=== PATIENT | female | born 1965 | race African-American/Black ===

== ENCOUNTER 2021-11-25 07:43 | Emergency (ER) | payer OTHER, SELFPAY ==
--- NOTE | ~2021-11-25 | CT_ITS ---
EXAMINATION: CT HEAD WITHOUT CONTRAST CLINICAL INFORMATION: Persistent headache. Syncope x2. COMPARISON: No relevant prior imaging. TECHNIQUE: Contiguous axial imaging was performed from the skull base to vertex without intravenous administration of contrast. This CT examination was performed using dose optimization techniques as appropriate, variously including the following: *Automated exposure control *Adjustment of mA and/or kV according to patient size (this includes techniques or standardized protocols for targeted exams where dose is matched to indication/reason for exam; i.e. extremities or head) *Use of iterative reconstruction technique DLP: 678 mGy-cm FINDINGS: There is no acute intracranial hemorrhage or abnormal extra-axial collection. No intracranial mass effect or midline shift. Lateral and third ventricles are normal. No hydrocephalus. Schilling-white matter differentiation is preserved and there is no evidence of acute territorial infarct. The calvarium and skull base are intact. Mastoid air cells and middle ear cavities are well aerated. No active paranasal sinus disease. CT/CT head/brain wo con IMPRESSION: Normal CT scan of the head.
[2021-11-25 07:53] VITALS: BP 157/90; PULSE 70; RESP 14; TEMP 36.8; O2SAT 96
--- NOTE | 2021-11-25 08:14 | ECG_ITS ---
Test Reason : HEADACHES/FALL Blood Pressure : / mmHG Vent. Rate : 061 BPM Atrial Rate : 061 BPM P-R Int : 200 ms QRS Dur : 082 ms QT Int : 376 ms P-R-T Axes : 058 -19 020 degrees QTc Int : 378 ms Normal sinus rhythm with sinus arrhythmia Minimal voltage criteria for LVH, may be normal variant ( R in aVL ) Nonspecific T wave abnormality Abnormal ECG No previous ECGs available Referred By: Dominique Smith Electronically Signed By:OZIEL BOLES MD
--- NOTE | 2021-11-25 08:24 | ED.HA ---
HPI - Headache General Chief Complaint: Headache Stated Complaint: Headache Time Seen by Provider: 11/25/21 08:07 Source: patient Mode of arrival: ambulatory History of Present Illness HPI Narrative: 56-year-old female with no significant past medical history presenting to the ED complaining of persistent headache and left eye feeling heavy s/p syncope x2 on 11/09. Patient reports episode happened after her mother's at 02:00 when she was sitting on the toilet, syncopized between bath tub and toilet seat then again in closet. + Head head and LOC. admits also had initial nausea and emesis x1. Denies any repeat syncopal episode, nausea or vomiting since the . has been taking Tylenol for headache without relief. denies symptoms prior to episode. Denies vision change/ loss, abdominal pain, chest pain, shortness of breath, history of clots, cigarette smoking MD elicited complaint: headache Onset (ago): week(s) Related Data Previous Rx's Medication Instructions Recorded [id number]-tpdvqlqqpninv-[id number] 1 cap PO Q4-6H PRN #14 cap 11/25/21 50 mg-300 mg-40 mg capsule (Fioricet) Allergies Allergy/AdvReac Type Severity Reaction Status Date / Time No Known Allergies Allergy Verified 11/25/21 08:14 Review of Systems Review of Systems: Constitutional: No Fever, No Chills, No Fatigue, No Malaise ENT/Mouth: No Ear Pain, No Nasal Congestion, No sore throat, No Rhinorrhea, No Swallowing Difficulty Eyes: No Eye Pain, No Swelling, No Redness, No Vision Changes Cardiovascular: No Chest Pain, No SOB, No Dyspnea on Exertion, No Orthopnea, No Edema, No Palpitations Respiratory: No Cough, No Sputum, No Dyspnea Gastrointestinal: + Nausea (resolved), + Vomiting(resolved), No Diarrhea, No Constipation, No Abdominal pain Genitourinary: No Dysuria, No Urinary Frequency, No Hematuria, No Urinary Incontinence/retention Musculoskeletal: No joint pain, No Myalgias, No Joint Swelling Skin: No Skin Lesions, No rash Neuro: No Weakness, No Numbness, No Paresthesias, +syncope x 2, No Dizziness, + Headache Yes all other systems are reviewed and are negative Neurologic: Denies Abnormal speech present [facility] Past Medical History Attestation statement: The following information was validated with the patient. Social History Social History Advance Directives: No Advance Directives Information Provided: No Physical Exam Vital Signs: Vital Signs: Last Vital Signs Temp 97.9 F 11/25/21 08:38 Pulse 70 11/25/21 08:38 Resp 16 11/25/21 08:38 BP 157/90 H 11/25/21 08:38 Pulse Ox 98 11/25/21 08:38 BMI result Body Mass Index 30.0 Const: General: cooperative, healthy appearing, no acute distress, alert, awake and Physically active Orientation/consciousness: patient oriented x3 Limitations: no limitations HEENT: Head: Yes normal to inspection, Yes atraumatic, No Ruiz's sign and No raccoon eyes Ears: hearing grossly normal bilaterally General nose exam: Normal external nose present Face and sinus: Yes normal facial exam Throat: Yes posterior oropharynx normal Eyes: General: appearance normal, both eyes and all related structures EOM: EOMs intact bilaterally Neck: Other: No midline cervical spinous tenderness Neck: Yes normal visual inspection and Yes no meningeal signs Resp: Effort & Inspection: normal respiratory effort and no respiratory distress Auscultation: clear to auscultation bilaterally, no rales, no rhonchi and no wheezes Cardio: Rate: regular rate Heart sounds: S1 normal heart sound present and S2 normal heart sound present GI: Inspection: Yes normal to inspection Palpation (GI): Soft to palpation, nontender, no guarding and not rigid : General: Yes no CVA tenderness Back/Spine/Pelvis: Back: no CVA tenderness Skin: Rashes: no rashes Wounds: no wounds Neuro: General: patient oriented x3, gait normal, tone normal, moves all extremities, no meningeal signs, no focal motor deficits and CN's II-XI intact bilaterally Cranial nerves: Yes CN's II-XII intact bilaterally and Yes Bilaterally intact EOM present Cognition (Neuro): normal cognition Speech: No Abnormal speech present Gait exam (Neuro): Normal gait present Motor exam (neuro): 5/5 motor strength present throughout Extrem: General: Yes normal to inspection Course Course Course Narrative: -[id number]-- labs unremarkable. Head CT WNL. > Results discussed with patient including worrisome signs and symptoms and strict return precautions and need close follow-up with PCP. She verbalized understanding feel safe for discharge home at this time MDM - Headache MDM Narrative Medical decision making narrative: 56-year-old female with no significant past medical history presenting to the ED complaining of persistent headache and left eye feeling heavy s/p syncope x2 on 11/09. on exam vital signs stable, NAD/ nontoxic appearing, no focal neuro deficits. Concern for concussion / postconcussive syndrome vs ICH. Low concern for ACS/PE. Rule out metabolic/infectious etiologies. Plan: EKG, labs, UA, head CT, pain management, re-evaluate Differential Diagnosis Differential diagnosis: Likely migraine, tension headache, headache and postconcussion syndrome Medical Records Attestation: I reviewed the patient's medical records. Lab Data Attestation: I reviewed the patient's lab results. Result diagrams: 11/25/21 08:36 11/25/21 08:36 Labs: Lab Results 11/25/21 11/25/21 11/25/21 Range/Units 08:36 08:36 09:29 WBC 4.8 (4.8-10.8) X10*3/uL RBC 4.13 L (4.20-5.50) X10*6/uL Hgb 13.9 (12.0-16.0) g/dl Hct 40.6 (37.0-47.0) % MCV 98.3 H (80.0-98.0) fL MCH 33.7 H (27.0-33.0) pg MCHC 34.2 (31.0-35.0) g/dl RDW 12.7 (11.0-16.0) % Plt Count 222 (160-400) X10*3/uL MPV 9.6 (9.4-12.3) fL Immature Gran % (Auto) 0.0 (0.0-0.4) % Neut % (Auto) 27.3 L (45-73) % Lymph % (Auto) 63.7 H (20-40) % [place] % (Auto) 6.7 (2-11) % Eos % (Auto) 1.5 (0-4) % Baso % (Auto) 0.8 (0-2) % Lymph # (Auto) 3.1 (1.2-4.9) X10*3/uL [place] # (Auto) 0.3 (0.1-1.2) X10*3/uL Eos # (Auto) 0.1 (0.0-0.4) X10*3/uL Baso # (Auto) 0.0 (0.0-0.2) X10*3/uL Abs Immat Gran (auto) 0.00 (0.00-0.03) X10*3/uL Absolute Neuts (auto) 1.3 L (2.0-8.3) x10*3/uL Absolute Nucleated RBC 0.000 (0.0-0.012) X10*3/uL Nucleated RBC % (auto) 0.0 (0.0-0.2) /100WBC Smear Tech's Comments VERIFIED Sodium 141 (135-145) mmol/L Potassium 3.5 (3.3-5.1) mmol/L Chloride 108 (96-108) mmol/L Carbon Dioxide 23 (22-29) mmol/L Anion Gap 14 (12-20) BUN 14 (9-16) mg/dL Creatinine 0.69 (0.5-1.4) mg/dL Estim Creat Clear Calc 93.8 Estimated GFR > 60 Random Glucose 94 (60-115) mg/dL Calcium 9.9 (8.4-10.2) mg/dL Magnesium 1.8 (1.6-2.6) mg/dL Total Bilirubin 0.6 (0.0-1.0) mg/dL Direct Bilirubin 0.2 (0.0-0.5) mg/dL AST 10 (5-31) U/L ALT 18 (0-31) U/L Alkaline Phosphatase 54 (39-117) U/L Total Protein 7.9 (6.5-8.0) g/dL Albumin 4.3 (3.5-5.0) g/dL Urine Color YELLOW Urine Appearance CLEAR Urine pH 6.0 (5.0-8.0) Ur Specific [place] 1.025 (1.005-1.025) Urine Protein NEG (NEG-TRACE) MG/DL Urine Glucose (UA) NEG (NEG) MG/DL Urine Ketones NEG (NEG) MG/DL Urine Blood NEG (NEG) Urine Nitrite NEG (NEG) Ur Leukocyte Esterase NEG (NEG) ECG Data Attestation: I personally reviewed and interpreted this ECG as follows: ECG interpretation date: 11/25/21 ECG interpretation time: 08:13 Interpretation: EKG normal sinus rhythm with sinus arrhythmia at a rate of 61. QRS 82. QTC 370. No STEMI Discharge Plan Discharge Clinical Impression: Postconcussion syndrome Patient Disposition: Home, Self-Care Instructions: Post Concussion Syndrome (ED) Additional Instructions: head CT & blood work were unremarkable today in the emergency department. You likely a post concussive syndrome please practice brain rest, avoid TV screens, excessive phone time, bright lights. Take Motrin and Fioricet as needed, Fioricet does have Tylenol mixed in do not exceed 4 g of Tylenol in 1 day. Please follow-up with her doctor If symptoms persist or worsen, constant worsening headache, nausea or vomiting, weakness please return to the emergency department Prescriptions: New jddfrikstn-swdoaytlpagvz-pysu [Fioricet] 50-300-40 mg capsule 1 cap PO Q4-6H PRN (Reason: headache) Qty: 14 0RF Referrals: Physician,Unknown J [Primary Care Provider] - 1 week
[2021-11-25 08:38] VITALS: BP 157/90; PULSE 70; RESP 16; TEMP 36.6; O2SAT 98
[2021-11-25 08:44] LABS: Basophils Percent Auto 0.8 % (0-2); Eosinophils Absolute Auto 0.1 X10*3/uL (0.0-0.4); Eosinophils Percent Auto 1.5 % (0-4); Hematocrit 40.6 % (37.0-47.0); Hemoglobin 13.9 g/dl (12.0-16.0); Lymphocytes Absolute Auto 3.1 X10*3/uL (1.2-4.9); Lymphocytes Percent Auto 63.7 % (20-40); MANUAL DIFF FLAG SCAN; Mean Corpuscular HGB Conc 34.2 g/dl (31.0-35.0); Mean Corpuscular Hemoglobin 33.7 pg (27.0-33.0); Mean Corpuscular Volume 98.3 fL (80.0-98.0); Mean Platelet Volume 9.6 fL (9.4-12.3); Monocytes Absolute Auto 0.3 X10*3/uL (0.1-1.2); Monocytes Percent Auto 6.7 % (2-11); Neutrophils Absolute Auto 1.3 x10*3/uL (2.0-8.3); Neutrophils Percent Auto 27.3 % (45-73); Platelet Count 222 X10*3/uL (160-400); Red Blood Count 4.13 X10*6/uL (4.20-5.50); Red Cell Distribution Width 12.7 % (11.0-16.0); SCAN SMEAR FLAG 1; White Blood Count 4.8 X10*3/uL (4.8-10.8)
[2021-11-25 09:03] LABS: SLIDE REVIEW VERIFIED
[2021-11-25 09:06] LABS: Alanine Aminotransferase 18 U/L (0-31); Albumin Level 4.3 g/dL (3.5-5.0); Alkaline Phosphatase 54 U/L (39-117); Anion Gap 14 (12-20); Aspartate Amino Transferase 10 U/L (5-31); Bilirubin Direct 0.2 mg/dL (0.0-0.5); Bilirubin Total 0.6 mg/dL (0.0-1.0); Blood Urea Nitrogen 14 mg/dL (9-16); Calcium 9.9 mg/dL (8.4-10.2); Carbon Dioxide 23 mmol/L (22-29); Chloride 108 mmol/L (96-108); Creatinine Clr Calc Pharmacy 93.8; Estimated Glomerular Filt Rate > 60; Glucose Random 94 mg/dL (60-115); Magnesium 1.8 mg/dL (1.6-2.6); Potassium 3.5 mmol/L (3.3-5.1); Sodium 141 mmol/L (135-145); Total Protein 7.9 g/dL (6.5-8.0)
[2021-11-25] MEDS: Metoclopramide HCl 10 MG/2 ML VIAL IVPUSH (09:15)
[2021-11-25] MEDS: 0.9 % Sodium Chloride 1,000 ML 999 ML IV (09:15)
[2021-11-25] MEDS: Acetaminophen 325 MG TABLET 650 MG PO (09:15)
[2021-11-25 09:42] LABS: Appearance Urine CLEAR; Color Urine YELLOW; Glucose Urine UA NEG (NEG); Leukocyte Esterase Urine NEG (NEG); Nitrite Urine NEG (NEG); Specific Gravity - Urine 1.025 (1.005-1.025); Urine Blood NEG (NEG); Urine Ketones NEG (NEG); Urine Protein NEG (NEG-TRACE)
== END 2021-11-25 10:22 | disposition home or self-care (01) ==
PROVIDERS: Physician Assistant; Emergency Provider Emergency Medicine
DX: F07.81 Postconcussional syndrome (principal); R51.9 Headache, unspecified; R55 Syncope and collapse; Z79.899 Other long term (current) drug therapy
CPT/HCPCS: 36415; 70450; 80048; 80076; 81003; 83735; 85025; 93005; 96361; 96374; 96375; 99284; J2765

== ENCOUNTER 2023-01-18 10:30 | Emergency (ER) | payer OTHER, SELFPAY ==
[2023-01-18 10:35] VITALS: BP 148/100; PULSE 90; RESP 18; TEMP 36.7; O2SAT 99; BMI 31.9
--- NOTE | 2023-01-18 12:02 | ED.HEATRA ---
HPI - Head Injury General Chief complaint: Head Injury Stated complaint: Fall/Head inj Time Seen by Provider: 01/18/23 11:09 Source: patient and RN notes reviewed Mode of arrival: ambulatory Limitations: no limitations History of Present Illness HPI Narrative: This is a 57-year-old female, with no known past medical history, presenting to the emergency department for evaluation of forehead swelling x6 days patient reports that 2 weeks ago while she was visiting in [place] a plastic chair broke and she fell backwards striking her posterior head on a concrete wall. Patient denies LOC, vision changes or headaches since this injury. Patient reports that 6 days ago she noticed swelling on her forehead. Denies any falls hitting her forehead, insect bites. Denies any headache, vision changes. Denies history of similar symptoms before. She states that she had severino put in 6 days ago however does not feel as though her severino are to tight. Denies any fevers or chills. No other complaints or concerns at this time. MD Complaint: head injury Place: home Loss of Consciousness: no Location of injury: occipital Radiation: none Other Injuries: none Associated symptoms: denies other symptoms Related Data Previous Rx's Medication Instructions Recorded hmrbobkumy-uyvztjftebmbm-wgpyugut 1 cap PO Q4-6H PRN headache #14 11/25/21 50 mg-300 mg-40 mg capsule caps (Fioricet) Allergies Allergy/AdvReac Type Severity Reaction Status Date / Time Penicillins [PCN] AdvReac Rash Verified 01/18/23 10:37 sulfamethoxazole AdvReac Rash Verified 01/18/23 10:37 [From Bactrim] trimethoprim [From Bactrim] AdvReac Rash Verified 01/18/23 10:37 Review of Systems Review of Systems: Constitutional: No Weight loss, No Fever, No Chills ENT/Mouth: No Ear Pain, No Nasal Congestion, No Sinus Pain, No Hoarseness, No sore throat, No Rhinorrhea, No Swallowing Difficulty Cardiovascular: No Chest Pain, No SOB Respiratory: No Cough, No Sputum, No Wheezing Gastrointestinal: No Nausea, No Vomiting, No Diarrhea, No Constipation, No Abdominal pain Genitourinary: No Dysuria, No Urinary Frequency, No Hematuria, No Urinary Incontinence/retention, No Urgency, No Flank Pain Musculoskeletal: No joint pain, No Myalgias, No Joint Swelling Skin: No Skin Lesions, No rash Neuro: No Weakness, No Numbness, No Paresthesias Yes all other systems are reviewed and are negative Constitutional: Constitutional: Reports as per [facility] Social History Social History Alcohol intake: never Patient Tobacco Use Status: Never used Tobacco Advance Directives: No Advance Directives Information Provided: No Physical Exam Vital Signs: Vital Signs: Last Vital Signs Temp 98.1 F 01/18/23 10:35 Pulse 90 01/18/23 10:35 Resp 18 01/18/23 10:35 BP 148/100 H 01/18/23 10:35 Pulse Ox 99 01/18/23 10:35 O2 Del Method Nasal Cannula 01/18/23 10:35 BMI result Body Mass Index 31.9 Const: General: cooperative, comfortable and no acute distress Orientation/consciousness: patient oriented x3 Limitations: no limitations HEENT: Other: Posterior occipital region without tenderness, fluctuance, step-off or deformity. Head: Yes normal to inspection, Yes normocephalic and Yes atraumatic Head images: 1. Mild edema noted to frontal forehead, no erythema, induration or fluctuance, no ecchymosis or warmth. Ears: hearing grossly normal bilaterally, TM's normal bilaterally and other (No hemotympanum) General nose exam: Normal external nose present Face and sinus: Yes normal facial exam Mouth: Normal oral and palatal mucosa present, oropharynx normal and moist mucous membranes Throat: Yes posterior oropharynx normal Eyes: General: appearance normal, both eyes and all related structures Eyelids: Yes eyelids normal Conjunctivae: conjunctivae normal Sclerae: sclerae normal Pupils: Equal, round and reactive pupils present EOM: EOMs intact bilaterally Neck: Neck: Yes normal visual inspection, Yes full ROM and Yes no lymphadenopathy Lymphatic: no lymphadenopathy noted Chest: Chest palpation & inspection: normal inspection of the chest Resp: Effort & Inspection: normal respiratory effort and able to speak in complete sentences Auscultation: clear to auscultation bilaterally, no crackles, no rales, no rhonchi and no wheezes Cardio: Rate: regular rate Rhythm: regular rhythm Heart sounds: S1 normal heart sound present and S2 normal heart sound present GI: Inspection: Yes normal to inspection Back/Spine/Pelvis: Other: No C-spine tenderness, full range of motion of the neck Cervical Spine: normal cervical lordosis Skin: General skin exam: no rashes or lesions noted Trauma: no lacerations or abrasions Wounds: no wounds Neuro: General: patient oriented x3 and moves all extremities Cranial nerves: Yes Equal, round and reactive pupils present Extrem: General: Yes normal to inspection Right upper extremity: normal to inspection Left upper extremity: normal to inspection Right lower extremity: normal to inspection Left lower extremity: normal to inspection Course Reevaluation(s) Reevaluation #1: Head CT unremarkable, advised patient to apply cool compresses to the area to help reduce the swelling. Advised to return with any new or worsening symptoms. Patient understands and agrees with plan. Patient stable for discharge. Medical Decision Making Medical Decision Making MDM Narrative: 57-year-old female presenting to the emergency department for evaluation of forehead swelling x6 days. While patient was visiting in [place] she fell and hit her occiput on a concrete wall. She states that she did not lose consciousness and felt okay after this fall. She noticed 6 days ago frontal forehead swelling has not resolved. I do not think that these findings are related however given patient's concern will order head CT for rule out of ICH/mass. Patient has no hemotympanum, is fully neurologically intact. Patient had a parade put in 60s ago and I believe that this is the root of her swelling however will order CT for further patient Differential Diagnosis Differential Diagnoses: The differential diagnosis associated with the presentation includes Hematoma, lipoma, ICH, cellulitis Radiology Impression Discussion of test interpretation with radiology: I have reviewed the radiologist's reading. Radiologist Impression: EXAMINATION: CT HEAD WITHOUT CONTRAST CLINICAL INFORMATION: Forehead mass status post trauma 2 weeks ago.? COMPARISON: Head CT scan dated 11/25/2021. TECHNIQUE: Contiguous axial imaging was performed from the skull base to vertex without intravenous administration of contrast. Coronal and sagittal reformatted images were obtained. This CT examination was performed using dose optimization techniques as appropriate, variously including the following: *Automated exposure control *Adjustment of mA and/or kV according to patient size (this includes techniques or standardized protocols for targeted exams where dose is matched to indication/reason for exam; i.e. extremities or head) *Use of iterative reconstruction technique DLP: 685 mGy-cm FINDINGS: The cortical sulci are normal. The lateral ventricles are symmetrical. The third and fourth ventricles are in their normal midline position. The basilar and prepontine cisterns are unremarkable. There is no acute intra or extracerebral abnormality. There is no mass effect or midline shift. Sections through the bony calvarium are unremarkable. The paranasal sinuses are clear. The bony orbits and orbital contents are unremarkable. CT/CT head/brain wo IV con IMPRESSION: No acute intracranial pathology. Dictated By: Demetrio Fair MD External Record Review External record reviewed: Inpatient record, Office record, Outpatient record, Prior outpatient labs, Prior outpatient radiology, Primary care record and Outside ED record Discharge Plan Discharge Clinical Impression: Local superficial swelling of head, Closed head injury Patient Disposition: Home, Self-Care Instructions: Head Injury (ED) Additional Instructions: Your CT scan of your head was normal. Please apply ice packs to the area to help reduce the swelling. Watch for any new or worsening symptoms including but not limited to fevers, chills, redness, worsening swelling, warmth the area. If any new or worsening symptoms occur please return for re-evaluation. Follow-up with your primary care physician regarding this visit. Prescriptions: No Action yzvogkssip-bjfcanvobiptj-rkmh [Fioricet] 50-300-40 mg capsule 1 cap PO Q4-6H PRN (Reason: headache) Qty: 14 0RF Interventions: ED Discharge Assessment Last Done: 01/18/23 13:20 Discharge Date/Time: 01/18/23 13:21
== END 2023-01-18 13:21 | disposition home or self-care (01) ==
PROVIDERS: Emergency Provider Emergency Medicine Emergency Medical Services
DX: R22.0 Localized swelling, mass and lump, head (principal); S09.90XA Unspecified injury of head, initial encounter; W07.XXXA Fall from chair, initial encounter; Y93.9 Activity, unspecified; Y92.9 Unspecified place or not applicable; Y99.9 Unspecified external cause status
CPT/HCPCS: 70450; 99282; 99284

== ENCOUNTER 2024-11-06 10:34 | Emergency (ER) | payer BC, SELFPAY ==
[2024-11-06 10:59] VITALS: BP 169/77; PULSE 69; RESP 18; TEMP 36.7; O2SAT 99; BMI 32.7
--- NOTE | 2024-11-06 11:00 | ED_ITS ---
HPI - General Adult General Chief complaint: Neuro Symptoms/Deficit Stated complaint: high bp pain in r shoulder blade Time Seen by Provider: 11/06/24 12:15 Source: patient, RN notes reviewed and old records reviewed Mode of arrival: ambulatory History of Present Illness ED Provider: Dominique Smith PA-C [facility] narrative: 59-year-old female no significant past medical history presenting to the ED complaining of intermittent right shoulder blade pain radiating down RUE with associated paresthesias/numbness since 10:00AM while at work. States symptoms are intermittent. Went to urgent care and was notably hypertensive 140/110 and sent to the ED. Denies history of hypertension. Denies chest pain, shortness of breath, palpitations, weakness, headache at present, vision change or loss. Does report occasional headaches, most recently on Wednesday night however self- resolved Related Data Previous Rx's ?Medication ?Instructions ?Recorded fabhymoxgz-ubfxgfciagptu-[id number] 1 cap PO Q4-6H PRN headache #14 11/25/21 50 mg-300 mg-40 mg capsule caps (Fioricet) amlodipine 5 mg tablet 5 mg PO DAILY #30 tabs 11/06/24 Allergies Allergy/AdvReac Type Severity Reaction Status Date / Time Penicillins [PCN] AdvReac Rash Verified 11/06/24 11:03 sulfamethoxazole AdvReac Rash Verified 11/06/24 11:03 [From Bactrim] trimethoprim [From Bactrim] AdvReac Rash Verified 11/06/24 11:03 Review of Systems 2 Review of Systems: Yes all other systems are reviewed and are negative Constitutional: Constitutional: Reports as per [facility] Past Medical History Attestation statement: The following information was validated with the patient. Source: old records reviewed Social History Social History Alcohol intake: never Patient Tobacco Use Status: Never used Tobacco Smoked in Last 30 Days: No Use of substances other than those prescribed or required for medical reasons: No Advance Directives: No Advance Directives Information Provided: Yes Patient : No Physical Exam ED Vital Signs: Vital Signs - 24 hr 11/06/24 10:59 11/06/24 13:39 11/06/24 13:53 Temperature 98.1 F 98.1 F Pulse Rate 69 62 Respiratory Rate 18 18 Blood Pressure 169/77 H 177/102 H 181/104 H Pulse Oximetry 99 99 Oxygen Delivery Method Room Air Room Air 11/06/24 14:12 11/06/24 15:47 11/06/24 15:47 Temperature 98 F Pulse Rate 59 59 Respiratory Rate 16 16 Blood Pressure 186/103 H 162/87 H 162/87 H Pulse Oximetry 95 95 Oxygen Delivery Method Room Air Room Air BMI result Body Mass Index 32.7 Const General: cooperative, healthy appearing and no acute distress Orientation/consciousness: patient oriented x3 Limitations: no limitations HENMT Head: Yes normal to inspection and Yes atraumatic Ears: hearing grossly normal bilaterally General nose exam: Normal external nose present Face and sinus: Yes normal facial exam Mouth: Normal oral and palatal mucosa present Throat: Yes posterior oropharynx normal, Yes tonsils normal, Yes uvula midline, No peritonsillar mass, No uvula laterally displaced and No uvular edema Eyes General: appearance normal, both eyes and all related structures EOM: EOMs intact bilaterally Neck Neck: Yes normal visual inspection and Yes no meningeal signs Resp Effort & Inspection: normal respiratory effort and no respiratory distress Auscultation: clear to auscultation bilaterally Cardio Rate: regular rate Heart sounds: S1 normal heart sound present and S2 normal heart sound present GI Inspection: Yes normal to inspection Palpation (GI): Soft to palpation, nontender, no guarding and not rigid Skin Rashes: no rashes Wounds: no wounds Neuro General: patient oriented x3, tone normal and no meningeal signs Cranial nerves: Yes CN's II-XII intact bilaterally Gait exam (Neuro): Normal gait present Extrem Other: Right shoulder without noted deformity. No erythema rash nontender. Full range of motion intact. Neurovascularly intact distally General: Yes normal to inspection Course Course Course Narrative: This is a rapid medical exam performed by Mary Hammer NP: Additional HPI, ROS, PE not included below will be deferred to primary provider. Patient is a 59-year-old female presenting from urgent care with complaint of right arm numbness since this morning. Denies chest pain, palpitations, shortness of breath. Urgent care referred to ED as BP was 140/110. Pt denies hx of HTN, BP in triage 167/77. Denies current headache or vision changes. Gets occasional headaches which resolve with Tylenol. Plan: EKG, labs -blood pressure elevated > we will give p.o. amlodipine and re-evaluate 1532--labs reassuring. Troponin x2 negative, mi unlikely -hCG = 3 > do not believe this is a true positive. Discussed with patient she needs repeat outpatient with PCP > repeat BP 164/87 after p.o. amlodipine > will start patient on p.o. amlodipine outpatient & recommended close PCP follow-up for close monitoring > patient has follow-up with her PCP tomorrow Medications Administered Discontinued Medications Generic Name Dose Route Start Last Admin Trade Name Kedar PRN Reason Stop Dose Admin Amlodipine Besylate 5 mg 11/06/24 13:43 11/06/24 14:12 Amlodipine Besylate 5 Mg Tablet PO 11/06/24 13:44 5 mg ONCE ONE Administration Protocol Medical Decision Making Medical Decision Making [facility] Narrative: 59-year-old female no significant past medical history presenting to the ED complaining of intermittent right shoulder blade pain radiating down RUE with associated paresthesias/numbness since 10:00AM while at work. On exam BP 169/77 in triage, NAD, nontoxic appearing, lungs CTA. No focal deficits. Physical exam as noted above. Concern for atypical ACS vs hypertensive urgency/emergency. Rule out metabolic abnormalities. Low suspicion for dissection, PE, CHF Plan: EKG, labs, BP monitoring Please refer to course for remaining clinical decision making, interpretation of labs/imaging results, and discussions with consultants and/or family members. Differential Diagnosis Differential Diagnoses: The differential diagnosis associated with the presentation includes As above Admission/Observation Consideration of admission/observation: Escalation of care including admission/observation considered Lab Data [facility] Lab Attestation statement: I reviewed the patient's lab results. 11/06/24 11:25 11/06/24 11:26 Labs: Lab Results 11/06/24 11/06/24 11/06/24 Range/Units 11:25 11:26 14:28 WBC 5.1 (4.8-10.8) X10*3/uL RBC 4.08 L (4.20-5.50) X10*6/uL Hgb 13.8 (12.0-16.0) g/dl Hct 40.0 (37.0-47.0) % MCV 98.0 (80.0-98.0) fL MCH 33.8 H (27.0-33.0) pg MCHC 34.5 (31.0-35.0) g/dl RDW 12.6 (11.0-16.0) % Plt Count 221 (160-400) X10*3/uL MPV 9.7 (9.4-12.3) fL Immature Gran % (Auto) 0.2 (0.0-0.4) % Neut % (Auto) 34.5 L (45-73) % Lymph % (Auto) 55.8 H (20-40) % Coke % (Auto) 6.6 (2-11) % Eos % (Auto) 1.9 (0-4) % Baso % (Auto) 1.0 (0-2) % Lymph # (Auto) 2.9 (1.2-4.9) X10*3/uL Coke # (Auto) 0.3 (0.1-1.2) X10*3/uL Eos # (Auto) 0.1 (0.0-0.4) X10*3/uL Baso # (Auto) 0.1 (0.0-0.2) X10*3/uL Abs Immat Gran (auto) 0.01 (0.00-0.03) X10*3/uL Absolute Neuts (auto) 1.8 L (2.0-8.3) x10*3/uL Absolute Nucleated RBC 0.000 (0.0-0.012) X10*3/uL Nucleated RBC % (auto) 0.0 (0.0-0.2) /100WBC PT 11.4 (10.9-12.4) SEC INR 1.0 (0.9-1.1) Sodium 142 (135-145) mmol/L Potassium 3.9 (3.3-5.1) mmol/L Chloride 109 H (96-108) mmol/L Carbon Dioxide 22 (22-29) mmol/L Anion Gap 15 (12-20) BUN 13 (9-16) mg/dL Creatinine 0.66 (0.5-1.4) mg/dL Estim Creat Clear Calc 98.8 Estimated GFR > 60 Random Glucose 93 (60-115) mg/dL Calcium 9.7 (8.4-10.2) mg/dL Magnesium 1.9 (1.6-2.6) mg/dL Total Bilirubin 0.5 (0.0-1.0) mg/dL AST 14 (5-31) U/L ALT 29 (0-31) U/L Alkaline Phosphatase 56 (39-117) U/L Troponin I High Sens < 2.7 < 2.7 (<3.5-17.0) ng/L Total Protein 7.8 (6.5-8.0) g/dL Albumin 4.3 (3.5-5.0) g/dL Beta HCG, Quant 3 mIU/mL Independent Interpretation I performed an independent interpretation of an: EKG (My interpretation EKG normal sinus rhythm rate of 62. HI interval 182. Nonspecific T-wave abnormality no longer evident in anterior lateral leads. No STEMI.) Radiology Impression Discussion of test interpretation with radiology: I have reviewed the radiologist's reading. External Record Review External record reviewed: Inpatient record, Office record, Outpatient record, Prior outpatient labs, Prior outpatient radiology, Primary care record and Outside ED record Tests considered The following testing was considered but not selected: As above Prescription Management I considered prescription management with: Other Chronic Conditions Patient?s care impacted by: Other Social Determinants Patient?s care significantly limited by Social Determinants of Health including: Other Social Determinant of Health Discharge Plan Discharge Clinical Impression: HTN (hypertension), Arm paresthesia, right Patient Disposition: Home, Self-Care Instructions: Heart Healthy Diet (DC), Paresthesia (ED), Hypertension (ED) Additional Instructions: Your blood pressure was very elevated today in the emergency department. This was lowered with amlodipine Please start taking amlodipine once daily as prescribed. You need to have very close follow up with your primary care doctor. Please monitor your blood pressure closely at home. If remains elevated, greater than 160/100, or is low less than 90/60 return to the ED immediately If you develop lightheadedness, dizziness, chest pain, shortness of breath return to the ED If your symptoms persist or worsen, your pain becomes unbearable return to the ED. Prescriptions: New amlodipine 5 mg tablet 5 mg PO DAILY Qty: 30 0RF No Action nbhvodoulg-jnharvuicldkj-vbek [Fioricet] 50-300-40 mg capsule 1 cap PO Q4-6H PRN (Reason: headache) Qty: 14 0RF Referrals: Missy Mejía MD [Primary Care Provider] - 2 days Interventions: ED Discharge Assessment Last Done: 11/06/24 15:47 Discharge Date/Time: 11/06/24 15:48 Print Language: Maori
--- NOTE | 2024-11-06 11:02 | ECG_ITS ---
Test Reason : chest pain Blood Pressure : */* mmHG Vent. Rate : 62 BPM Atrial Rate : 62 BPM P-R Int : 182 ms QRS Dur : 78 ms QT Int : 414 ms P-R-T Axes : 48 -22 23 degrees QTcB Int : 420 ms Normal sinus rhythm Minimal voltage criteria for LVH, may be normal variant ( R in aVL ) Borderline ECG When compared with ECG of 25-Nov-2021 08:13, Nonspecific T wave abnormality no longer evident in Anterolateral leads Referred By: Ora Hammer Electronically Signed By: KASSANDRA OCHOA
[2024-11-06 11:32] LABS: MANUAL DIFF FLAG NO
[2024-11-06 11:36] LABS: Basophils Absolute Auto 0.1 X10*3/uL (0.0-0.2); Eosinophils Absolute Auto 0.1 X10*3/uL (0.0-0.4); Eosinophils Percent Auto 1.9 % (0-4); Hemoglobin 13.8 g/dl (12.0-16.0); Imm Gran Abs Auto 0.01 X10*3/uL (0.00-0.03); Imm Gran Pct Auto 0.2 % (0.0-0.4); Lymphocytes Absolute Auto 2.9 X10*3/uL (1.2-4.9); Lymphocytes Percent Auto 55.8 % (20-40); Mean Corpuscular HGB Conc 34.5 g/dl (31.0-35.0); Mean Corpuscular Hemoglobin 33.8 pg (27.0-33.0); Mean Platelet Volume 9.7 fL (9.4-12.3); Monocytes Absolute Auto 0.3 X10*3/uL (0.1-1.2); Monocytes Percent Auto 6.6 % (2-11); Neutrophils Absolute Auto 1.8 x10*3/uL (2.0-8.3); Neutrophils Percent Auto 34.5 % (45-73); Platelet Count 221 X10*3/uL (160-400); Red Blood Count 4.08 X10*6/uL (4.20-5.50); Red Cell Distribution Width 12.6 % (11.0-16.0); White Blood Count 5.1 X10*3/uL (4.8-10.8)
[2024-11-06 11:43] LABS: Prothrombin Time 11.4 SEC (10.9-12.4)
[2024-11-06 11:54] LABS: HCG Quantitative 3 mIU/mL
[2024-11-06 11:56] LABS: Alanine Aminotransferase 29 U/L (0-31); Albumin Level 4.3 g/dL (3.5-5.0); Alkaline Phosphatase 56 U/L (39-117); Anion Gap 15 (12-20); Aspartate Amino Transferase 14 U/L (5-31); Bilirubin Total 0.5 mg/dL (0.0-1.0); Blood Urea Nitrogen 13 mg/dL (9-16); Calcium 9.7 mg/dL (8.4-10.2); Carbon Dioxide 22 mmol/L (22-29); Chloride 109 mmol/L (96-108); Creatinine Clr Calc Pharmacy 98.8; Estimated Glomerular Filt Rate > 60; Glucose Random 93 mg/dL (60-115); Magnesium 1.9 mg/dL (1.6-2.6); Potassium 3.9 mmol/L (3.3-5.1); Sodium 142 mmol/L (135-145); Total Protein 7.8 g/dL (6.5-8.0); Troponin-I High Sensitivity < 2.7 ng/L (<3.5-17.0)
[2024-11-06 13:39] VITALS: BP 177/102; PULSE 62; RESP 18; TEMP 36.7; O2SAT 99
[2024-11-06 13:53] VITALS: BP 181/104
[2024-11-06 14:12] VITALS: BP 186/103
[2024-11-06] MEDS: amLODIPine Besylate 5 MG TABLET PO (14:12)
[2024-11-06 14:53] LABS: Troponin-I High Sensitivity < 2.7 ng/L (<3.5-17.0)
[2024-11-06 15:47] VITALS: BP 162/87; PULSE 59; RESP 16; TEMP 36.6; O2SAT 95
== END 2024-11-06 15:48 | disposition home or self-care (01) ==
PROVIDERS: Physician Assistant; Registered Nurse Emergency; Emergency Provider Emergency Medicine; PCP Internal Medicine
DX: R20.2 Paresthesia of skin (principal); R07.89 Other chest pain; M25.511 Pain in right shoulder; R10.2 Pelvic and perineal pain; Z79.899 Other long term (current) drug therapy
CPT/HCPCS: 36415; 80053; 83735; 84484; 84702; 85025; 85610; 93005; 99283; 99284

== ENCOUNTER → 2024-11-06 11:02 | Outpatient (BNV) | payer BC, SELFPAY | PROVIDERS: Emergency Provider Emergency Medicine; PCP Internal Medicine; Visit Provider Internal Medicine | DX: R94.31 Abnormal electrocardiogram [ECG] [EKG] (principal); R07.9 Chest pain, unspecified | CPT/HCPCS: 93010 ==